=== PATIENT | male | born 1990 | race Caucasian/White ===

== ENCOUNTER 2018-12-29 13:53 | Emergency (ER) | payer SELFPAY ==
[~2018-12-29] VITALS: Ht 172.7 cm; Wt 82.0 kg
[2018-12-29] MEDS ORDERED: FLUORESCEIN SODIUM 1MG/STRIP BOTHEYE ONE (14:45)
[2018-12-29] MEDS ORDERED: TETRACAINE 0.5% OPHTH DROPS 4ML BOTHEYE ONE (14:45)
[2018-12-29 16:40] VITALS: BP 124/70
[2018-12-29] MEDS ORDERED: HYDROCODONE/ACETAMINOPHEN 5/325MG TABLET PO ONE (16:45)
== END 2018-12-29 16:55 | disposition home or self-care (01) ==
LOC: ER 13:53
DX: S00.12XA Contusion of left eyelid and periocular area, initial encounter (principal); R51 Headache; V49.88XA Car occupant (driver) (passenger) injured in other specified transport accidents, initial encounter; Y93.89 Activity, other specified; Y92.89 Other specified places as the place of occurrence of the external cause; Y99.8 Other external cause status
CPT/HCPCS: 70486; 99284